=== PATIENT | male | born 1935 | race Caucasian/White ===

== ENCOUNTER 2017-12-24 06:40 | Inpatient (IN) | payer MEDICARE ==
[~2017-12-24] VITALS: Ht 170.2 cm; Wt 85.9 kg
[2017-12-24] MEDS ORDERED: NITROGLYCERIN SINGLE TAB 0.4 MG SL ONE (07:14)
[2017-12-24] MEDS ORDERED: ASPIRIN 81 MG TABLET CHEW ONE (07:15)
[2017-12-24] MEDS ORDERED: ASPIRIN 81 MG TABLET CHEW PO ONE (07:30)
[2017-12-24] MEDS ORDERED: NITROGLYCERIN SINGLE TAB 0.4 MG SL PRN (07:30)
[2017-12-24] MEDS ORDERED: SODIUM CHLORIDE FLUSH 10ML SYR IVF ONE (07:30)
[2017-12-24 07:33] LABS: BASOPHILS # (AUTO) 0.02 x10^3/uL (0-0.1); BASOPHILS % (AUTO) 0 % (0-1); EOSINOPHILS # (AUTO) 0.19 x10^3/uL (0-0.4); EOSINOPHILS % (AUTO) 3 % (1-7); LYMPHOCYTES # (AUTO) 0.97 x10^3/uL (1-3.4); LYMPHOCYTES % (AUTO) 14 % (22-44); MD NO; MEAN CORPUSCULAR HGB CONC 33.4 g/dL (33.2-36.2); MEAN CORPUSCULAR VOLUME 95.8 fL (81-97); MEAN PLATELET VOLUME 7.4 fL (7.4-10.4); MONOCYTES # (AUTO) 0.73 x10^3/uL (0.2-0.8); MONOCYTES % (AUTO) 11 % (2-9); NEUTROPHILS # (AUTO) 5.02 x10^3/uL (1.8-6.8); NEUTROPHILS % (AUTO) 73 % (42-75); PLATELET COUNT 179 x10^3/uL (130-400); RED BLOOD COUNT 4.73 x10^6/uL (4.38-5.82); RED CELL DISTRIBUTION WIDTH 15.9 % (9.4-14.8)
[2017-12-24 07:46] LABS: ALBUMIN 3.7 g/dL (3.4-5.0); ANION GAP 8 mmol/L (5-15); CALCIUM 8.3 mg/dL (8.5-10.1); CHLORIDE 113 mmol/L (98-107)
[2017-12-24 07:50] LABS: INTERNATIONAL NORMALIZED RATIO 0.95 (0.93-1.1); PROTHROMBIN TIME 9.9 Seconds (9.6-11.5)
[2017-12-24 07:51] LABS: CREATININE 2.03 mg/dL (0.7-1.3); TROPONIN I 0.016 ng/mL (0.000-0.045)
[2017-12-24] MEDS ORDERED: IRBE300T16 PO (09:18)
[2017-12-24] MEDS ORDERED: TAMS0.4C2 PO (09:18)
[2017-12-24] MEDS ORDERED: ALLO100T30 PO (09:18)
[2017-12-24] MEDS ORDERED: SODIUM CHLORIDE 0.9% 1,000 ML IV SCH (09:26)
[2017-12-24] MEDS ORDERED: NITROGLYCERIN 0.4 MG BOTTLE (25 TABS) SL PRN (09:30)
[2017-12-24] MEDS ORDERED: ACETAMINOPHEN 325 MG TABLET PO PRN (09:30)
[2017-12-24] MEDS ORDERED: ONDANSETRON ODT 4 MG PO PRN (09:30)
[2017-12-24] MEDS ORDERED: POLYETHYLENE GLYCOL 17 GM PACKET PO PRN (09:30)
[2017-12-24] MEDS ORDERED: HEPARIN 5,000 UNITS/ML, 1ML SQ SCH (10:30)
[2017-12-24 10:51] VITALS: BP 196/65
[2017-12-24] MEDS ORDERED: MULT-658 PO (10:53)
[2017-12-24] MEDS ORDERED: AMLODIPINE 5 MG TABLET PO ONE (11:00)
[2017-12-24 11:41] LABS: TROPONIN I 0.194 ng/mL (0.000-0.045)
[2017-12-24 12:21] VITALS: BP 167/65
[2017-12-24] MEDS ORDERED: HEPARIN 5,000 UNITS/ML, 1ML IV ONE (13:00)
[2017-12-24] MEDS ORDERED: HEPARIN 5,000 UNITS/ML, 1ML IV PRN (13:00)
[2017-12-24] MEDS ORDERED: HEPARIN 25,000 UNITS/500ML PMX 500 ML IV PRN (13:00)
[2017-12-24 14:05] VITALS: BP 149/55
[2017-12-24] MEDS: METOPROLOL SUCCINATE 25 MG TAB.ER.24H PO SCH (14:35)
[2017-12-24] MEDS: SODIUM CHLORIDE 0.9% 1,000 ML IV SCH ×2 (18:30→23:04)
[2017-12-24 20:11] VITALS: BP_SYST 131; BP_SYST 173; BP_DIAS 69; BP_DIAS 75
[2017-12-24] MEDS: TAMSULOSIN 0.4 MG CAP.ER.24H PO SCH (20:28)
[2017-12-24] MEDS ORDERED: SODI1TAB15 PO (21:05)
[2017-12-25 01:44] VITALS: BP 146/77
[2017-12-25 04:53] LABS: ANION GAP 8 mmol/L (5-15); CALCIUM 7.7 mg/dL (8.5-10.1); CHLORIDE 112 mmol/L (98-107)
[2017-12-25 04:58] LABS: CHOL/HDL RATIO 2.7; CHOLESTEROL, TOTAL 174 mg/dL (140-239); CREATININE 1.53 mg/dL (0.7-1.3); HDL CHOL % 37 % (26-37); HDL CHOLESTEROL (DIRECT) 65 mg/dL (40-60); LDL CHOLESTEROL,CALCULATED 92 mg/dL (54-169); LDL/HDL RATIO 1.4 (0.5-3.0); TRIGLYCERIDES 84 mg/dL (50-200); VLDL CHOLESTEROL 17 mg/dL (0-25)
[2017-12-25 04:59] LABS: HEMOGLOBIN A1C 5.3 % (4.2-6.3)
[2017-12-25 05:56] VITALS: BP 144/80
[2017-12-25] MEDS: METOPROLOL SUCCINATE 25 MG TAB.ER.24H PO SCH (05:58)
[2017-12-25 08:09] VITALS: BP 159/68
[2017-12-25] MEDS: SODIUM CHLORIDE 0.9% 1,000 ML IV SCH (08:15)
[2017-12-25] MEDS: ALLOPURINOL 300 MG TABLET PO SCH (08:18)
[2017-12-25] MEDS: AMLODIPINE 5 MG TABLET PO SCH (08:18)
[2017-12-25] MEDS: ASPIRIN 81 MG TABLET EC PO SCH (09:19)
[2017-12-25 12:28] VITALS: BP 120/66
[2017-12-25] MEDS ORDERED: TICAGRELOR 90 MG TABLET ONE (16:02)
[2017-12-25] MEDS ORDERED: FENTANYL PF 100 MCG/2ML ONE (16:02)
[2017-12-25] MEDS ORDERED: VERAPAMIL 2.5 MG/ML, 2ML ONE (16:02)
[2017-12-25] MEDS ORDERED: MIDAZOLAM 1 MG/ML, 2ML ONE (16:03)
[2017-12-25] MEDS ORDERED: HEPARIN 1,000 UNITS/ML, 10ML ONE (16:03)
[2017-12-25] MEDS ORDERED: BIVALIRUDIN 250 MG ONE (16:03)
[2017-12-25] MEDS ORDERED: LIDOCAINE-MPF 2%, 2ML ONE (16:03)
[2017-12-25] MEDS ORDERED: BIVALIRUDIN 250 MG in DEXTROSE 5% 50 ML IV SCH (18:00)
[2017-12-25] MEDS ORDERED: SODIUM CHLORIDE 0.9% 1,000 ML IV SCH ×2 (18:00→18:15)
[2017-12-25] MEDS ORDERED: ATORVASTATIN 40 MG TABLET PO SCH (21:00)
[2017-12-25 21:51] VITALS: BP 154/70
[2017-12-25] MEDS: TICAGRELOR 90 MG TABLET PO SCH (22:10)
[2017-12-25] MEDS: TAMSULOSIN 0.4 MG CAP.ER.24H PO SCH (22:10)
[2017-12-26 02:55] VITALS: BP 148/78
[2017-12-26] MEDS: ASPIRIN 81 MG TABLET EC PO SCH (05:01)
[2017-12-26] MEDS: METOPROLOL SUCCINATE 25 MG TAB.ER.24H PO SCH (05:01)
[2017-12-26 05:04] LABS: ALBUMIN 2.7 g/dL (3.4-5.0); ANION GAP 8 mmol/L (5-15); CALCIUM 7.5 mg/dL (8.5-10.1); CHLORIDE 112 mmol/L (98-107); CREATININE 1.44 mg/dL (0.7-1.3)
[2017-12-26 08:30] VITALS: BP 174/77
[2017-12-26] MEDS: ALLOPURINOL 300 MG TABLET PO SCH (08:39)
[2017-12-26] MEDS: AMLODIPINE 5 MG TABLET PO SCH (08:40)
[2017-12-26] MEDS: TICAGRELOR 90 MG TABLET PO SCH (08:40)
[2017-12-26] MEDS ORDERED: IRBESARTAN 150 MG TABLET PO SCH (09:00)
[2017-12-26 09:17] LABS: CREATININE,URINE RANDOM 39.3 mg/dL
[2017-12-26 09:26] LABS: OSMOLALITY,URINE 386 mOsm/kg (500-850)
[2017-12-26 09:31] LABS: MICROSCOPIC INDICATED
[2017-12-26 10:01] VITALS: BP 140/66
[2017-12-26] MEDS ORDERED: ASPI-621 PO (11:19)
[2017-12-26] MEDS ORDERED: ATOR40TA78 PO (11:19)
[2017-12-26] MEDS ORDERED: NITR0.4T SL (11:19)
[2017-12-26] MEDS ORDERED: AMLO5TAB2 PO (11:19)
[2017-12-26] MEDS ORDERED: METO25TA91 PO (11:19)
[2017-12-26] MEDS ORDERED: TICA90TA PO (11:19)
[2017-12-26] MEDS ORDERED: AMLODIPINE 5 MG TABLET PO SCH (21:00)
== END 2017-12-26 13:30 | disposition home or self-care (01) | DRG 246 ==
LOC: ED 08:57 → SUATTDRO 09:26 → EDIP 09:26 → 5SO 10:15 → DCLOUNGE 12-26 13:11
PROVIDERS: ADMIT Hospitalist; ATTEND Hospitalist
PROC: 027034Z Dilation of Coronary Artery, One Artery with Drug-eluting Intraluminal Device, Percutaneous Approach (ICD-10-PCS; principal; 2017-12-25)
PROC: 02703ZZ Dilation of Coronary Artery, One Artery, Percutaneous Approach (ICD-10-PCS; 2017-12-25)
PROC: 4A023N7 Measurement of Cardiac Sampling and Pressure, Left Heart, Percutaneous Approach (ICD-10-PCS; 2017-12-25)
PROC: B2111ZZ Fluoroscopy of Multiple Coronary Arteries using Low Osmolar Contrast (ICD-10-PCS; 2017-12-25)
PROC: B2151ZZ Fluoroscopy of Left Heart using Low Osmolar Contrast (ICD-10-PCS; 2017-12-25)
DX: I21.4 Non-ST elevation (NSTEMI) myocardial infarction (principal); N17.0 Acute kidney failure with tubular necrosis; G89.29 Other chronic pain; I25.10 Atherosclerotic heart disease of native coronary artery without angina pectoris; I51.7 Cardiomegaly; Z96.643 Presence of artificial hip joint, bilateral; I12.9 Hypertensive chronic kidney disease with stage 1 through stage 4 chronic kidney disease, or unspecified chronic kidney disease; M10.9 Gout, unspecified; N18.9 Chronic kidney disease, unspecified; N40.0 Benign prostatic hyperplasia without lower urinary tract symptoms; Z82.3 Family history of stroke; Z87.891 Personal history of nicotine dependence; Z98.1 Arthrodesis status; Z88.0 Allergy status to penicillin
CPT/HCPCS: 36415; 71045; 76770; 80048; 80061; 81001; 82040; 82550; 82570; 83036; 83735; 83935; 84100; 84156; 84300; 84484; 84540; 84550; 85014; 85018; 85025; 85520; 85610; 85730; 93005; 93306; 93458; 99156; 99157; 99285; C1769; C1894; C9600; J0583; J1644; J2250; J3010; J3490; C1725; C1874; C1887; J7030; Q9967

== ENCOUNTER 2018-02-12 19:05 | Emergency (ER) | payer MEDICARE ==
[~2018-02-12] VITALS: Ht 170.2 cm; Wt 80.1 kg
[~2018-02-12 19:05] MED LIST: ALLO100T30 PO; AMLO5TAB7 PO; ASPI-621 PO; ATOR40TA78 PO; IRBE300T16 PO; METO25TA91 PO; MULT-658 PO; NITR0.4T SL; SODI1TAB15 PO; TAMS0.4C2 PO; TICA90TA PO
[2018-02-12 19:10] VITALS: BP 170/75
[2018-02-12] MEDS ORDERED: PHENYLEPHRINE NASAL 1%, 30ML DROPS NAS ONE (19:30)
[2018-02-12] MEDS ORDERED: LIDOCAINE 1%-EPI 1:100K, 20ML INFIL ONE (19:30)
[2018-02-12 19:53] LABS: INTERNATIONAL NORMALIZED RATIO 0.93 (0.93-1.1); PROTHROMBIN TIME 9.7 Seconds (9.6-11.5)
[2018-02-12 19:56] LABS: ALANINE AMINOTRANSFERASE 25 U/L (12-78); ALBUMIN 3.3 g/dL (3.4-5.0); ANION GAP 9 mmol/L (5-15); CALCIUM 8.7 mg/dL (8.5-10.1); CHLORIDE 114 mmol/L (98-107); CREATININE 1.75 mg/dL (0.7-1.3)
[2018-02-12 19:58] LABS: ALKALINE PHOSPHATASE 129 U/L (45-117); BILIRUBIN,TOTAL 0.4 mg/dL (0.2-1.0); TOTAL PROTEIN 7.3 g/dL (6.4-8.2)
[2018-02-12] MEDS ORDERED: LIDOCAINE-MPF 2%, 2ML ONE (20:00)
[2018-02-12] MEDS ORDERED: PHENYLEPHRINE NASAL 1%, 15ML SPRAY ONE (20:00)
[2018-02-12] MEDS ORDERED: LIDOCAINE 1%-EPI 1:100K, 30ML ONE (20:01)
[2018-02-12 20:19] LABS: BASOPHILS # (AUTO) 0.03 x10^3/uL (0-0.1); BASOPHILS % (AUTO) 0 % (0-1); EOSINOPHILS # (AUTO) 0.33 x10^3/uL (0-0.4); EOSINOPHILS % (AUTO) 4 % (1-7); LYMPHOCYTES # (AUTO) 0.98 x10^3/uL (1-3.4); LYMPHOCYTES % (AUTO) 11 % (22-44); MD NO; MEAN CORPUSCULAR HEMOGLOBIN 32.3 pg (27.5-34.5); MEAN CORPUSCULAR HGB CONC 33.9 g/dL (33.2-36.2); MEAN CORPUSCULAR VOLUME 95.3 fL (81-97); MEAN PLATELET VOLUME 6.8 fL (7.4-10.4); MONOCYTES # (AUTO) 0.74 x10^3/uL (0.2-0.8); MONOCYTES % (AUTO) 9 % (2-9); NEUTROPHILS # (AUTO) 6.68 x10^3/uL (1.8-6.8); NEUTROPHILS % (AUTO) 76 % (42-75); PLATELET COUNT 286 x10^3/uL (130-400)
[2018-02-12] MEDS ORDERED: TRANEXAMIC ACID 100 MG/ML, 10ML TP STA (20:29)
[2018-02-12] MEDS ORDERED: TRANEXAMIC ACID 100 MG/ML, 10ML ONE (20:44)
== END 2018-02-12 22:09 | disposition home or self-care (01) ==
LOC: ED 22:07
DX: R04.0 Epistaxis (principal); I10 Essential (primary) hypertension; Z79.899 Other long term (current) drug therapy
CPT/HCPCS: 36415; 80053; 85025; 85610; 99284; J3490

== ENCOUNTER → 2018-07-23 | Outpatient (CLI) | payer MEDICARE ==
[~2018-07-23] MED LIST changes: +AMLO-150 PO; -AMLO5TAB7 PO; -ASPI-621 PO; +ASPI81TA45 PO
== END | disposition home or self-care (01) ==
LOC: CFH 09:39
PROVIDERS: ATTEND Internal Medicine Cardiovascular Disease
DX: E78.2 Mixed hyperlipidemia (principal); I10 Essential (primary) hypertension; Z95.5 Presence of coronary angioplasty implant and graft
CPT/HCPCS: 71046

== ENCOUNTER → 2018-09-10 | Outpatient (CLI) | payer MEDICARE ==
[~2018-09-10] MED LIST changes: +REGADENOSON 0.4 MG/5 ML SYRINGE ONE
== END | disposition home or self-care (01) ==
LOC: CFH 08:19
PROVIDERS: ATTEND Internal Medicine Cardiovascular Disease
DX: I10 Essential (primary) hypertension (principal); I45.10 Unspecified right bundle-branch block; I21.19 ST elevation (STEMI) myocardial infarction involving other coronary artery of inferior wall; Z95.5 Presence of coronary angioplasty implant and graft
CPT/HCPCS: 78452; 93017; A9502; J2785